=== PATIENT | male | born 1945 | race Caucasian/White ===

== ENCOUNTER 2016-05-22 08:15 | Outpatient (CLI) | payer OTHER | END 2016-05-22 23:59 | DX: D46.9 Myelodysplastic syndrome, unspecified (principal); E11.9 Type 2 diabetes mellitus without complications; I10 Essential (primary) hypertension; E78.5 Hyperlipidemia, unspecified ==

== ENCOUNTER 2016-12-11 09:06 | Outpatient (CLI) | payer OTHER ==
[2016-12-11 12:58] LABS: ALBUMIN/GLOBULIN RATIO 1.8 (1.0-2.2); BILIRUBIN,TOTAL 0.7 mg/dL (0.2-1.0); CALCIUM 9.4 mg/dL (8.5-10.3); CREATININE 1.2 mg/dL (0.6-1.2); POTASSIUM 4.5 mmol/L (3.5-5.0); TOTAL PROTEIN 7.1 g/dL (6.7-8.2); URIC ACID 6.4 mg/dL (2.6-7.2)
[2016-12-11 13:40] LABS: HEMOGLOBIN A1C 0.64 g/dL
== END 2016-12-11 09:07 | disposition home or self-care (01) ==
LOC: LAB.WCP 09:06
PROVIDERS: ATTEND Family Medicine
DX: D46.9 Myelodysplastic syndrome, unspecified (principal); D69.6 Thrombocytopenia, unspecified; I10 Essential (primary) hypertension; E78.9 Disorder of lipoprotein metabolism, unspecified; E11.9 Type 2 diabetes mellitus without complications
CPT/HCPCS: 36415; 80053; 82043; 82607; 83036; 84550

== ENCOUNTER 2018-12-15 08:00 | Outpatient (CLI) | payer OTHER ==
[2018-12-15 13:35] LABS: CHOL/HDL RATIO 4.3 (<5.0); CHOLESTEROL 128 mg/dL; HDL CHOLESTEROL 30 mg/dL; LDL CHOLESTEROL,CALCULATED 79 mg/dL; LDL/HDL RATIO 2.6 (<3.6); VLDL CHOLESTEROL 19 mg/dL
[2018-12-15 13:41] LABS: HB2 TOTAL 13.9 g/dL; HEMOGLOBIN A1C 0.65 g/dL; HEMOGLOBIN A1C % 6.4 % (4.6-6.2)
== END 2018-12-15 23:59 | disposition home or self-care (01) ==
LOC: LAB.WCP 08:00
PROVIDERS: ATTEND Family Medicine
DX: E11.9 Type 2 diabetes mellitus without complications (principal); I10 Essential (primary) hypertension; E78.5 Hyperlipidemia, unspecified
CPT/HCPCS: 36415; 80053; 80061; 82043; 83036; 83721; 84443

== ENCOUNTER 2019-10-27 07:26 | Outpatient (CLI) | payer OTHER ==
[2019-10-27 12:46] LABS: ALBUMIN 4.5 g/dL (3.2-5.5); ALBUMIN/GLOBULIN RATIO 1.8 (1.0-2.2); ALKALINE PHOSPHATASE 80 IU/L (42-121); ALT ALANINE AMINOTRANSFERASE < 10 IU/L (10-60); AST ASPARTATE AMINOTRANSFERASE 18 IU/L (10-42); BILIRUBIN,TOTAL 0.5 mg/dL (0.2-1.0); BUN - BLOOD UREA NITROGEN 24 mg/dL (6-20); CALCIUM 9.1 mg/dL (8.5-10.3); CARBON DIOXIDE - CO2 24 mmol/L (21-32); CHLORIDE 107 mmol/L (101-111); CHOLESTEROL 151 mg/dL; CREATININE 1.3 mg/dL (0.6-1.2); GLUCOSE 146 mg/dL (70-100); HDL CHOLESTEROL 30 mg/dL; LDL CHOLESTEROL,CALCULATED 95 mg/dL; LDL/HDL RATIO 3.2 (<3.6); SODIUM 137 mmol/L (135-145); VLDL CHOLESTEROL 26 mg/dL
[2019-10-27 12:52] LABS: BASOPHILS % (AUTO) 0.4 %; EOSINOPHILS # (AUTO) 0.1 10^3/uL (0.0-0.7); EOSINOPHILS % (AUTO) 2.9 %; HGB - HEMOGLOBIN 13.1 g/dL (14.0-18.0); LYMPHOCYTES # (AUTO) 1.4 10^3/uL (1.5-3.5); MEAN CORPUSCULAR HEMOGLOBIN 32.2 pg (27.0-31.0); MEAN CORPUSCULAR HGB CONC 33.4 g/dL (32.0-36.0); MEAN CORPUSCULAR VOLUME 96.3 fL (80.0-94.0); MEAN PLATELET VOLUME 12.1 fL (7.4-11.4); MONOCYTES # (AUTO) 0.4 10^3/uL (0.0-1.0); NEUTROPHILS # (AUTO) 2.8 10^3/uL (1.5-6.6); NEUTROPHILS % (AUTO) 58.5 %; PLT - PLATELET COUNT 104 10^3/uL (130-450); RED BLOOD COUNT 4.07 10^6/uL (4.70-6.10); RED CELL DISTRIBUTION WIDTH 12.7 % (12.0-15.0); WHITE BLOOD COUNT 4.8 x10^3/uL (4.8-10.8)
[2019-10-27 12:57] LABS: CREATININE,URINE 149.2 mg/dL; MICROALBUM/CREATININE RATIO,UR 4.7 ug/mg (<30.0); MICROALBUMIN,URINE 0.7 mg/dL (0-300.0)
[2019-10-27 13:11] LABS: HB2 TOTAL 14.1 g/dL; HEMOGLOBIN A1C 0.67 g/dL; HEMOGLOBIN A1C % 6.5 % (4.6-6.2)
== END 2019-10-27 23:59 | disposition home or self-care (01) ==
LOC: LAB.WCP 07:26
PROVIDERS: ATTEND Family Medicine
DX: D46.9 Myelodysplastic syndrome, unspecified (principal); D69.6 Thrombocytopenia, unspecified; I10 Essential (primary) hypertension; E11.9 Type 2 diabetes mellitus without complications; E78.5 Hyperlipidemia, unspecified
CPT/HCPCS: 36415; 80053; 80061; 82043; 82570; 83036; 83721; 84443; 85025

== ENCOUNTER 2020-12-08 09:49 | Outpatient (CLI) | payer OTHER ==
[2020-12-08 12:28] LABS: BASOPHILS % (AUTO) 0.5 %; EOSINOPHILS # (AUTO) 0.1 10^3/uL (0.0-0.7); EOSINOPHILS % (AUTO) 2.5 %; HCT - HEMATOCRIT 40.5 % (42.0-52.0); HGB - HEMOGLOBIN 13.6 g/dL (14.0-18.0); LYMPHOCYTES % (AUTO) 21.5 %; MEAN CORPUSCULAR HEMOGLOBIN 32.2 pg (27.0-31.0); MEAN CORPUSCULAR HGB CONC 33.6 g/dL (32.0-36.0); MEAN PLATELET VOLUME 12.1 fL (7.4-11.4); MONOCYTES # (AUTO) 0.3 10^3/uL (0.0-1.0); MONOCYTES % (AUTO) 7.5 %; NEUTROPHILS % (AUTO) 67.5 %; PLT - PLATELET COUNT 112 10^3/uL (130-450); RED BLOOD COUNT 4.22 10^6/uL (4.70-6.10); RED CELL DISTRIBUTION WIDTH 12.3 % (12.0-15.0); WHITE BLOOD COUNT 4.4 x10^3/uL (4.8-10.8)
[2020-12-08 12:38] LABS: ALBUMIN 4.3 g/dL (3.2-5.5); ALBUMIN/GLOBULIN RATIO 1.6 (1.0-2.2); ALKALINE PHOSPHATASE 87 IU/L (42-121); ALT ALANINE AMINOTRANSFERASE 11 IU/L (10-60); AST ASPARTATE AMINOTRANSFERASE 23 IU/L (10-42); BILIRUBIN,TOTAL 0.9 mg/dL (0.2-1.0); BUN - BLOOD UREA NITROGEN 24 mg/dL (6-20); CALCIUM 9.2 mg/dL (8.5-10.3); CARBON DIOXIDE - CO2 27 mmol/L (21-32); CHLORIDE 103 mmol/L (101-111); CHOL/HDL RATIO 4.8 (<5.0); CHOLESTEROL 160 mg/dL; CREATININE 1.3 mg/dL (0.6-1.2); GFR - MDRD 54 (>89); GLUCOSE 189 mg/dL (70-100); HDL CHOLESTEROL 33 mg/dL; LDL CHOLESTEROL,CALCULATED 87 mg/dL; LDL/HDL RATIO 2.6 (<3.6); POTASSIUM 4.8 mmol/L (3.5-5.0); SODIUM 137 mmol/L (135-145); TRIGLYCERIDES 201 mg/dL; VLDL CHOLESTEROL 40 mg/dL
[2020-12-08 12:45] LABS: THYROID STIMULATING HORMONE 0.87 uIU/mL (0.34-5.60)
[2020-12-08 12:50] LABS: ESTIMATED AVERAGE GLUCOSE 140 mg/dL (70-100); HEMOGLOBIN A1c% 6.5 % (4.27-6.07)
== END 2020-12-08 23:59 | disposition home or self-care (01) ==
LOC: LAB.WCP 09:49
PROVIDERS: ATTEND Family Medicine
DX: E11.9 Type 2 diabetes mellitus without complications (principal); R41.3 Other amnesia
CPT/HCPCS: 36415; 80053; 80061; 82607; 83036; 83721; 84443; 85025; 86592

== ENCOUNTER 2021-01-04 13:25 | Outpatient (CLI) | payer OTHER ==
[2021-01-04] MEDS ORDERED: GADOBUTROL 7.5 MMOL/7.5 ML VIAL ONE (13:52)
[2021-01-04] MEDS ORDERED: GADOBUTROL 7.5 MMOL/7.5 ML VIAL IVP ONE (16:20)
--- NOTE | 2021-01-04 17:34 | MRI Report ---
PROCEDURE: Brain W/WO INDICATIONS: MEMORY LOSS CONTRAST: IV CONTRAST: Gadavist ml: 8.6 TECHNIQUE: Noncontrast axial T1 spin echo, axial T2 fast spin echo, sagittal and axial FLAIR, coronal T2 fast sp in echo, axial gradient echo, axial diffusion and ADC through the brain. After the administration of contrast, axial and coronal T1 spin echo with fat saturation through the brain. COMPARISON: None. FINDINGS: Image quality: Excellent. CSF spaces: Basal cisterns are patent. No extra-axial fluid collections. Ventricles are normal in size and shape. Brain: No midline shift. No intracranial bleeds or masses. No abnormal intracranial enhancement. There is cerebral volume loss for age. There is periventricular white matter chronic small vessel is chemic change. The brainstem appears normal. Diffusion-weighted images demonstrate no acute ischemi c insults. No chronic ischemic insults. Normal intravascular flow voids are present. Skull and face: Calvarial marrow is normal in signal. Orbits appear normal. Sinuses: Sinuses and mastoids appear clear. IMPRESSION: No imaging explanation is found for the patient's presenting symptoms. Age-appropriate brain parenchymal volume loss and chronic small vessel ischemic change can be seen. No masses or abnormal enhancement can be seen. No findings of acute or subacute infarction are seen. Reviewed by: Javier Noble MD on 01/04/2021 4:33 PM QUANG Approved by: Javier Noble MD on 01/04/2021 4:33 PM QUANG Station ID: [id number]
== END 2021-01-04 13:26 | disposition home or self-care (01) ==
LOC: DI 13:25
PROVIDERS: ATTEND Family Medicine
DX: R41.3 Other amnesia (principal)
CPT/HCPCS: 70553; A9585

== ENCOUNTER 2021-01-16 09:22 | Outpatient (CLI) | payer OTHER ==
[2021-01-16 13:53] LABS: BASOPHILS % (AUTO) 0.6 %; EOSINOPHILS % (AUTO) 3.8 %; HCT - HEMATOCRIT 40.6 % (42.0-52.0); HGB - HEMOGLOBIN 13.2 g/dL (14.0-18.0); LYMPHOCYTES % (AUTO) 21.5 %; MEAN CORPUSCULAR HEMOGLOBIN 31.4 pg (27.0-31.0); MEAN CORPUSCULAR HGB CONC 32.5 g/dL (32.0-36.0); MEAN CORPUSCULAR VOLUME 96.7 fL (80.0-94.0); MEAN PLATELET VOLUME 12.4 fL (7.4-11.4); MONOCYTES % (AUTO) 6.5 %; NEUTROPHILS % (AUTO) 67.4 %; PLT - PLATELET COUNT 102 10^3/uL (130-450); RED CELL DISTRIBUTION WIDTH 12.6 % (12.0-15.0); WHITE BLOOD COUNT 4.9 x10^3/uL (4.8-10.8)
[2021-01-16 14:00] LABS: SLIDE REVIEW? Indicated
[2021-01-16 17:05] LABS: PLATELET ESTIMATE, MANUAL DECREASED (<130,000) (NORMAL); PLATELET MORPHOLOGY NORMAL APPEARANCE (NORMAL); RBC MORPHOLOGY (MULTIPLE) 1+ ANISOCYTOSIS (NORMAL); WBC MORPHOLOGY (MULTIPLE) NORMAL APPEARANCE (NORMAL)
[2021-01-16 17:06] LABS: DIFFERENTIAL COMMENT MANUAL=AUTO DIFF
== END 2021-01-16 23:59 | disposition home or self-care (01) ==
LOC: LAB.WCP 09:22
PROVIDERS: ATTEND Family Medicine
DX: D61.818 Other pancytopenia (principal)
CPT/HCPCS: 36415; 85025

== ENCOUNTER 2021-02-08 08:57 | Outpatient (CLI) | payer OTHER | END 2021-02-08 08:58 | disposition home or self-care (01) | LOC: DI 08:57 | PROVIDERS: ATTEND Family Medicine | DX: R06.09 Other forms of dyspnea (principal); I11.9 Hypertensive heart disease without heart failure | CPT/HCPCS: 93306 ==

== ENCOUNTER 2021-06-14 15:22 | Outpatient (CLI) | payer OTHER ==
[2021-06-14 16:11] VITALS: BP 128/73
--- NOTE | 2021-06-14 16:11 | SLEEP CARE CONSULTATION ---
Information from patient questionnaire entered by Rosendo Burkett MA. I have reviewed and concur with the information entered by Rosendo Burkett MA. This document represents the service I personally performed and the decisions made by , Lila Da Silva ARNP. History of Present Illness Service Date and Time: 06/14/2021 1522 Reason for Visit: New patient (ONST 04/2020, NO PRIORS,) Accompanied by: Spouse Chief Complaint: reports: Unrefreshed sleep, Fatigue Date of Onset: 1-2 YEARS Usual bedtime: 9-10 PM Time it takes to fall asleep: very quickly, seconds Snores at night: No Observed to quit breathing while asleep: No Sleeps alone due to snoring: No Number of times waking at night: 2 Reasons for waking at night: reports: Other (CHANGE POSITIONS). denies: Choking, Snoring, Gasping for air Toss, Turn, or Twitch while sleeping: Yes Recalls having dreams: No (remembers "snippets" of dream) Usually gets out of bed at: 0700 Feels refreshed in the morning: No (sometimes) Morning headache: No Sleepy or fatigued during the day: No ( says yes) Ever fallen asleep while driving: No (not driving current) Takes day naps: No Dreams during day naps: No Prior sleep studies: No Additional HPI information: I had the pleasure of seeing BARNEY TRAVIS today regarding the possibility of him having a sleep disorder. His current complaints are fatigue and unrefreshed sleep. He was referred by neurology due to his possible Lewy-body Dementia. He is thrashing/acting out dreams about once every 3-4 weeks. - Parasomnia Symptoms Ever been unable to move upon waking from sleep: No Walks in sleep: No Talks in sleep: Yes Ever acted out dreams in sleep: Yes Ever felt weak in the knees when startled or emotional: No Bothered by creepy, crawly, restless sensations in legs: No Problems with memory or concentration: No (memory according to ) Subjective Initial [place] Sleepiness Scale score: 5 (06/13) Past Medical History Past Medical History: reports: Hypertension, Diabetes, Other (Lewy Body Demetia; high cholesterol) Social History The patient's occupation is a RE. Patient is and lives in [place]. Have you smoked in the past 12 months: No Cigarettes per day (20/pack): 20 Years of smokin Quit date: 1982 Smoking Pack Years: 18.0 Alcohol use: Yes Alcohol amount and frequency: 2-3 X week Caffeine use: Yes Caffeine amount and frequency: 1 coffee weekly; 2-3 sodas X daily Family History Family history of sleep disordered breathing: No Allergies and Home Medications Known drug allergies: Yes (LISINOPRIL) Drug allergies reviewed: Yes Home medication list reviewed: Yes Allergy and home medication list: Allergies hydrochlorothiazide Allergy (Verified 12/28/19 08:42) Anaphylaxis lisinopril Allergy (Verified 12/28/19 08:42) Anaphylaxis Medications: Carvedilol Metformin Glipizide Losartan Simvastatin Mementine B12 Poly-Iron Fish oil Vitamin C Review of Systems Weight loss over past 5 years: 5-10 Cardiovascular: reports: high blood pressure Gastrointestinal: reports: diarrhea (now and then) Neurological: reports: gait or balance problems Immunologic: reports: sneezing Physical Exam Vital signs obtained and entered by: Zoie BURKETT [facility] Blood Pressure: 128/73 (RIGHT, PUSE5 57, RESP 18 ) Heart Rate: 57 O2 Saturation: 97 (PAPER) Height: 5 ft 11 in Weight: 189 lb Body Mass Index: 26.3 BMI Classification: Overweight Neck circumference: 15.5 (INCHES) Mouth and throat: narrow oropharynx Soft palate: long Hard palate: normal Uvula: normal Uvula visualization: 50% Mallampati Class II Tongue: enlarged in size with teeth agee on lateral edges Tonsils: small Neck: normal w/o lymphadenopathy or thyromegaly Heart: regular rate and rhythm Lungs: clear bilaterally Impression and Plan 1. Suspected Obstructive Sleep Apnea-Hypopnea Syndrome, as suggested by a history of unrefreshed sleep, cognitive impairment, and daytime fatigue. Patient has a history of diabetes and hypertension. 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 I recommend proceeding to polysomnography to confirm the diagnosis and to assess severity. If the patient has significant sleep disordered breathing, a manual CPAP titration study will also be performed to find the optimal treatment pressure. I informed the patient of what the sleep studies involve and after some discussion, obtained agreement to proceed. The pathophysiology of obstructive sleep apnea-hypopnea syndrome was discussed with the patient and health risks of cardiovascular and cerebrovascular disease if not treated. Risks of drowsy driving discussed in detail and patient advised to avoid long distance driving and to casing puller at the first sign of drowsiness. Patient agreed to plan. * Schedule polysomnography +- manual CPAP titration study and return in 1-2 weeks after the study to discuss results. * Avoid alcohol, sedative and muscle relaxant around bedtime. * Maintain a healthy weight. * Review instructions provided by trained office staff on how to prepare for the sleep study. * Return for follow-up after sleep study completed. Counseling Topics: Weight loss health impact Visit Type: In Office Other Participants: Spouse/Significant Other Time Spent with Patient (minutes): 35 Provider Statement: I spent 100% of the Face to Face Visit with the patient with greater than 50% spent counseling the patient and coordination of care.
== END 2021-06-14 15:23 | disposition home or self-care (01) ==
LOC: SC 15:22
PROVIDERS: ATTEND Nurse Practitioner Family
DX: R53.83 Other fatigue (principal); G47.8 Other sleep disorders; E11.9 Type 2 diabetes mellitus without complications; E66.3 Overweight; Z68.26 Body mass index [BMI] 26.0-26.9, adult; Z87.891 Personal history of nicotine dependence
CPT/HCPCS: 99203; 99212

== ENCOUNTER 2021-07-16 20:34 | Outpatient (CLI) | payer OTHER | END 2021-07-16 20:35 | disposition home or self-care (01) | LOC: SC 20:34 | PROVIDERS: ATTEND Nurse Practitioner Family | DX: G47.61 Periodic limb movement disorder (principal) | CPT/HCPCS: 95810 ==

== ENCOUNTER 2021-09-14 09:26 | Outpatient (CLI) | payer OTHER ==
[2021-09-14 11:37] LABS: BASOPHILS % (AUTO) 0.6 %; EOSINOPHILS # (AUTO) 0.1 10^3/uL (0.0-0.7); EOSINOPHILS % (AUTO) 2.5 %; HCT - HEMATOCRIT 40.6 % (42.0-52.0); HGB - HEMOGLOBIN 13.6 g/dL (14.0-18.0); LYMPHOCYTES % (AUTO) 20.3 %; MEAN CORPUSCULAR HEMOGLOBIN 31.5 pg (27.0-31.0); MEAN CORPUSCULAR HGB CONC 33.5 g/dL (32.0-36.0); MEAN PLATELET VOLUME 12.3 fL (7.4-11.4); MONOCYTES # (AUTO) 0.4 10^3/uL (0.0-1.0); MONOCYTES % (AUTO) 7.4 %; NEUTROPHILS # (AUTO) 3.4 10^3/uL (1.5-6.6); PLT - PLATELET COUNT 107 10^3/uL (130-450); RED BLOOD COUNT 4.32 10^6/uL (4.70-6.10); RED CELL DISTRIBUTION WIDTH 12.4 % (12.0-15.0); WHITE BLOOD COUNT 4.9 x10^3/uL (4.8-10.8)
[2021-09-14 11:54] LABS: ESTIMATED AVERAGE GLUCOSE 131 mg/dL (70-100); HEMOGLOBIN A1c% 6.2 % (4.27-6.07)
[2021-09-14 12:03] LABS: ALBUMIN 4.3 g/dL (3.2-5.5); ALBUMIN/GLOBULIN RATIO 1.7 (1.0-2.2); ALKALINE PHOSPHATASE 69 IU/L (42-121); ALT ALANINE AMINOTRANSFERASE 13 IU/L (10-60); AST ASPARTATE AMINOTRANSFERASE 23 IU/L (10-42); BILIRUBIN,TOTAL 1.1 mg/dL (0.2-1.0); BUN - BLOOD UREA NITROGEN 23 mg/dL (6-20); CALCIUM 9.1 mg/dL (8.5-10.3); CARBON DIOXIDE - CO2 28 mmol/L (21-32); CHLORIDE 102 mmol/L (101-111); CHOL/HDL RATIO 5.1 (<5.0); CHOLESTEROL 147 mg/dL; CREATININE 1.3 mg/dL (0.6-1.2); GFR - MDRD 53 (>89); GLUCOSE 190 mg/dL (70-100); HDL CHOLESTEROL 29 mg/dL; LDL CHOLESTEROL,CALCULATED 86 mg/dL; POTASSIUM 4.8 mmol/L (3.5-5.0); SODIUM 138 mmol/L (135-145); TOTAL PROTEIN 6.9 g/dL (6.7-8.2); TRIGLYCERIDES 160 mg/dL; VLDL CHOLESTEROL 32 mg/dL
[2021-09-14 12:05] LABS: THYROID STIMULATING HORMONE 1.01 uIU/mL (0.34-5.60)
== END 2021-09-14 09:27 | disposition home or self-care (01) ==
LOC: LAB.N 09:26
PROVIDERS: ATTEND Nurse Practitioner Family
DX: I10 Essential (primary) hypertension (principal); E78.5 Hyperlipidemia, unspecified; E11.9 Type 2 diabetes mellitus without complications
CPT/HCPCS: 36415; 80053; 80061; 83036; 83721; 84443; 85025

== ENCOUNTER 2022-09-27 09:30 | Outpatient (CLI) | payer OTHER ==
[2022-09-27 12:12] LABS: BASOPHILS % (AUTO) 0.6 %; EOSINOPHILS # (AUTO) 0.1 10^3/uL (0.0-0.7); HCT - HEMATOCRIT 36.5 % (42.0-52.0); HGB - HEMOGLOBIN 12.4 g/dL (14.0-18.0); LYMPHOCYTES # (AUTO) 1.1 10^3/uL (1.5-3.5); LYMPHOCYTES % (AUTO) 20.7 %; MEAN CORPUSCULAR HEMOGLOBIN 32.2 pg (27.0-31.0); MEAN CORPUSCULAR VOLUME 94.8 fL (80.0-94.0); MEAN PLATELET VOLUME 12.1 fL (7.4-11.4); MONOCYTES # (AUTO) 0.4 10^3/uL (0.0-1.0); MONOCYTES % (AUTO) 8.2 %; NEUTROPHILS # (AUTO) 3.5 10^3/uL (1.5-6.6); NEUTROPHILS % (AUTO) 68.1 %; PLT - PLATELET COUNT 105 10^3/uL (130-450); RED BLOOD COUNT 3.85 10^6/uL (4.70-6.10); RED CELL DISTRIBUTION WIDTH 12.2 % (12.0-15.0); WHITE BLOOD COUNT 5.1 x10^3/uL (4.8-10.8)
[2022-09-27 12:21] LABS: % IRON SATURATION 32 % (20-50); ALBUMIN 4.1 g/dL (3.2-5.5); ALBUMIN/GLOBULIN RATIO 1.5 (1.0-2.2); ALKALINE PHOSPHATASE 82 IU/L (42-121); ALT ALANINE AMINOTRANSFERASE 11 IU/L (10-60); AST ASPARTATE AMINOTRANSFERASE 21 IU/L (10-42); BILIRUBIN,TOTAL 0.7 mg/dL (0.2-1.0); BUN - BLOOD UREA NITROGEN 22 mg/dL (6-20); CARBON DIOXIDE - CO2 27 mmol/L (21-32); CHLORIDE 107 mmol/L (101-111); CHOL/HDL RATIO 4.6 (<5.0); CHOLESTEROL 146 mg/dL; CREATININE 1.4 mg/dL (0.6-1.2); GFR - MDRD 49 (>89); GLUCOSE 184 mg/dL (70-100); HDL CHOLESTEROL 32 mg/dL; IRON 105 ug/dL (45-182); LDL CHOLESTEROL,CALCULATED 89 mg/dL; LDL/HDL RATIO 2.8 (<3.6); POTASSIUM 4.8 mmol/L (3.5-5.0); SODIUM 138 mmol/L (135-145); TOTAL IRON BINDING CAPACITY 328 ug/dL (250-450); TOTAL PROTEIN 6.9 g/dL (6.7-8.2); TRANSFERRIN 234 mg/dL (180-329); TRIGLYCERIDES 124 mg/dL; VLDL CHOLESTEROL 25 mg/dL
[2022-09-27 12:29] LABS: ESTIMATED AVERAGE GLUCOSE 134 mg/dL (70-100); HEMOGLOBIN A1c% 6.3 % (4.27-6.07)
[2022-09-27 12:33] LABS: THYROID STIMULATING HORMONE 0.6 uIU/mL (0.34-5.60)
[2022-09-27 12:40] LABS: FERRITIN 124.5 ng/mL (23.9-336.2)
[2022-09-27 12:44] LABS: FOLATE 6.9 ng/mL (5.90 - >24.8)
== END 2022-09-27 09:31 | disposition home or self-care (01) ==
LOC: LAB.N 09:30
PROVIDERS: ATTEND Nurse Practitioner Family
DX: I15.1 Hypertension secondary to other renal disorders (principal); E11.22 Type 2 diabetes mellitus with diabetic chronic kidney disease; N18.30 Chronic kidney disease, stage 3 unspecified; G31.83 Neurocognitive disorder with Lewy bodies; E78.5 Hyperlipidemia, unspecified
CPT/HCPCS: 36415; 80053; 80061; 82607; 82728; 82746; 83036; 83540; 83721; 84443; 84466; 85025

== ENCOUNTER 2023-03-27 13:22 | Outpatient (CLI) | payer OTHER ==
[2023-03-27 17:55] LABS: BASOPHILS % (AUTO) 0.6 %; EOSINOPHILS # (AUTO) 0.2 10^3/uL (0.0-0.7); EOSINOPHILS % (AUTO) 2.9 %; HCT - HEMATOCRIT 36.2 % (42.0-52.0); HGB - HEMOGLOBIN 12.3 g/dL (14.0-18.0); LYMPHOCYTES # (AUTO) 1.1 10^3/uL (1.5-3.5); LYMPHOCYTES % (AUTO) 21.7 %; MEAN CORPUSCULAR HEMOGLOBIN 32.2 pg (27.0-31.0); MEAN CORPUSCULAR VOLUME 94.8 fL (80.0-94.0); MEAN PLATELET VOLUME 12.3 fL (7.4-11.4); MONOCYTES # (AUTO) 0.4 10^3/uL (0.0-1.0); MONOCYTES % (AUTO) 7.4 %; NEUTROPHILS # (AUTO) 3.5 10^3/uL (1.5-6.6); NEUTROPHILS % (AUTO) 67.2 %; PLT - PLATELET COUNT 108 10^3/uL (130-450); RED BLOOD COUNT 3.82 10^6/uL (4.70-6.10); RED CELL DISTRIBUTION WIDTH 13.3 % (12.0-15.0); WHITE BLOOD COUNT 5.2 x10^3/uL (4.8-10.8)
[2023-03-27 18:12] LABS: ESTIMATED AVERAGE GLUCOSE 146 mg/dL (70-100); HEMOGLOBIN A1c% 6.7 % (4.27-6.07); THYROID STIMULATING HORMONE 1.19 uIU/mL (0.34-5.60)
[2023-03-27 19:17] LABS: ALBUMIN 4.5 g/dL (3.2-5.5); ALKALINE PHOSPHATASE 98 IU/L (42-121); ALT ALANINE AMINOTRANSFERASE 6 IU/L (10-60); AST ASPARTATE AMINOTRANSFERASE 17 IU/L (10-42); BILIRUBIN,TOTAL 0.5 mg/dL (0.2-1.0); BUN - BLOOD UREA NITROGEN 23 mg/dL (6-20); CALCIUM 9.1 mg/dL (8.5-10.3); CARBON DIOXIDE - CO2 25 mmol/L (21-32); CHLORIDE 106 mmol/L (101-111); CHOL/HDL RATIO 8.9 (<5.0); CHOLESTEROL 268 mg/dL; CREATININE 1.7 mg/dL (0.6-1.3); GFR - MDRD 39 (>89); GLUCOSE 150 mg/dL (74-104); HDL CHOLESTEROL 30 mg/dL; LDL CHOLESTEROL,CALCULATED 190 mg/dL; LDL/HDL RATIO 6.3 (<3.6); POTASSIUM 4.9 mmol/L (3.5-4.5); SODIUM 138 mmol/L (135-145); TOTAL PROTEIN 6.8 g/dL (6.4-8.9); TRIGLYCERIDES 238 mg/dL (48-352); VLDL CHOLESTEROL 48 mg/dL
== END 2023-03-27 13:23 | disposition home or self-care (01) ==
LOC: LAB.N 13:22
PROVIDERS: ATTEND Nurse Practitioner Family
DX: I10 Essential (primary) hypertension (principal); E11.9 Type 2 diabetes mellitus without complications; E78.5 Hyperlipidemia, unspecified
CPT/HCPCS: 36415; 80053; 80061; 83036; 83721; 84443; 85025

== ENCOUNTER 2023-03-28 20:27 | Outpatient (CLI) | payer OTHER | END 2023-03-28 20:28 | disposition EMS.NT | LOC: EMS 20:27 | DX: Z03.89 Encounter for observation for other suspected diseases and conditions ruled out (principal) ==

== ENCOUNTER 2023-05-08 08:00 | Outpatient (CLI) | payer OTHER ==
[2023-05-08 16:39] LABS: BILIRUBIN,URINE NEGATIVE (NEGATIVE); GLUCOSE, URINE (UA) 100 mg/dL (NEGATIVE); KETONES,URINE (UA) NEGATIVE (NEGATIVE); LEUKOCYTE ESTERASE, URINE NEGATIVE (NEGATIVE); NITRITE,URINE NEGATIVE (NEGATIVE); OCCULT BLOOD,URINE NEGATIVE (NEGATIVE); PH,URINE 5.5 PH (5.0-7.5); PROTEIN,URINE NEGATIVE (NEGATIVE); UROBILINOGEN,URINE 0.2 (NORMAL) E.U./dL (NORMAL)
[2023-05-08 16:40] LABS: CLARITY,URINE CLEAR (CLEAR)
== END 2023-05-08 23:59 | disposition home or self-care (01) ==
LOC: LAB.N 08:00
PROVIDERS: ATTEND Nurse Practitioner Gerontology
DX: N39.0 Urinary tract infection, site not specified (principal)
CPT/HCPCS: 81001; 81003; 87086

== ENCOUNTER → 2023-05-27 | Outpatient (CLI) | payer OTHER | LOC: PC 08:00 | PROVIDERS: ATTEND Nurse Practitioner Gerontology | DX: Z51.5 Encounter for palliative care (principal); G31.83 Neurocognitive disorder with Lewy bodies; F02.84 Dementia in other diseases classified elsewhere, unspecified severity, with anxiety; F02.811 Dementia in other diseases classified elsewhere, unspecified severity, with agitation; F02.82 Dementia in other diseases classified elsewhere, unspecified severity, with psychotic disturbance; G20.C Parkinsonism, unspecified; G47.52 REM sleep behavior disorder; Z79.899 Other long term (current) drug therapy; Z66 Do not resuscitate | CPT/HCPCS: 99349 ==

== ENCOUNTER 2023-06-17 08:00 | Outpatient (CLI) | payer OTHER | END 2023-06-17 23:59 | disposition home or self-care (01) | LOC: PC 08:00 | PROVIDERS: ATTEND Nurse Practitioner Gerontology | DX: Z51.5 Encounter for palliative care (principal); G31.83 Neurocognitive disorder with Lewy bodies; F02.811 Dementia in other diseases classified elsewhere, unspecified severity, with agitation; F02.82 Dementia in other diseases classified elsewhere, unspecified severity, with psychotic disturbance; F02.84 Dementia in other diseases classified elsewhere, unspecified severity, with anxiety; G47.52 REM sleep behavior disorder; Z79.899 Other long term (current) drug therapy; Z71.89 Other specified counseling; Z87.891 Personal history of nicotine dependence; Z66 Do not resuscitate | CPT/HCPCS: 99349 ==

== ENCOUNTER 2023-07-09 08:00 | Outpatient (CLI) | payer OTHER | END 2023-07-09 23:59 | disposition home or self-care (01) | LOC: PC 08:00 | PROVIDERS: ATTEND Nurse Practitioner Gerontology | DX: Z51.5 Encounter for palliative care (principal); G31.83 Neurocognitive disorder with Lewy bodies; F02.811 Dementia in other diseases classified elsewhere, unspecified severity, with agitation; F02.84 Dementia in other diseases classified elsewhere, unspecified severity, with anxiety; F02.82 Dementia in other diseases classified elsewhere, unspecified severity, with psychotic disturbance; G47.52 REM sleep behavior disorder; Z91.83 Wandering in diseases classified elsewhere; R32 Unspecified urinary incontinence; R15.9 Full incontinence of feces; J30.9 Allergic rhinitis, unspecified; G45.9 Transient cerebral ischemic attack, unspecified; E11.22 Type 2 diabetes mellitus with diabetic chronic kidney disease; I12.9 Hypertensive chronic kidney disease with stage 1 through stage 4 chronic kidney disease, or unspecified chronic kidney disease; N18.30 Chronic kidney disease, stage 3 unspecified; Z79.899 Other long term (current) drug therapy; Z74.1 Need for assistance with personal care | CPT/HCPCS: 99350 ==

== ENCOUNTER 2023-07-23 08:00 | Outpatient (CLI) | payer OTHER | END 2023-07-23 23:59 | disposition home or self-care (01) | LOC: PC 08:00 | PROVIDERS: ATTEND Nurse Practitioner Gerontology | DX: Z51.5 Encounter for palliative care (principal); F03.90 Unspecified dementia, unspecified severity, without behavioral disturbance, psychotic disturbance, mood disturbance, and anxiety | CPT/HCPCS: 99426; 99427 ==

== ENCOUNTER 2023-07-23 08:00 | Outpatient (CLI) | payer OTHER | END 2023-07-23 23:59 | disposition home or self-care (01) | LOC: PC 08:00 | PROVIDERS: ATTEND Nurse Practitioner Gerontology | DX: Z51.5 Encounter for palliative care (principal); G31.83 Neurocognitive disorder with Lewy bodies; G20.C Parkinsonism, unspecified; F02.811 Dementia in other diseases classified elsewhere, unspecified severity, with agitation; F02.82 Dementia in other diseases classified elsewhere, unspecified severity, with psychotic disturbance; F02.84 Dementia in other diseases classified elsewhere, unspecified severity, with anxiety; G47.52 REM sleep behavior disorder; R32 Unspecified urinary incontinence; R29.6 Repeated falls; R53.1 Weakness; I10 Essential (primary) hypertension; Z79.899 Other long term (current) drug therapy; Z74.1 Need for assistance with personal care | CPT/HCPCS: 99349 ==

== ENCOUNTER 2023-08-23 08:00 | Outpatient (CLI) | payer OTHER | END 2023-08-23 23:59 | disposition home or self-care (01) | LOC: PC 08:00 | PROVIDERS: ATTEND Nurse Practitioner Gerontology | DX: Z51.5 Encounter for palliative care (principal); F03.90 Unspecified dementia, unspecified severity, without behavioral disturbance, psychotic disturbance, mood disturbance, and anxiety | CPT/HCPCS: 99426 ==

== ENCOUNTER 2023-10-01 08:00 | Outpatient (CLI) | payer OTHER | END 2023-10-01 23:59 | disposition home or self-care (01) | LOC: PC 08:00 | PROVIDERS: ATTEND Nurse Practitioner Gerontology | DX: Z51.5 Encounter for palliative care (principal); F03.90 Unspecified dementia, unspecified severity, without behavioral disturbance, psychotic disturbance, mood disturbance, and anxiety | CPT/HCPCS: 99426; 99427 ==

== ENCOUNTER → 2023-10-01 | Outpatient (CLI) | payer OTHER | LOC: PC 08:00 | PROVIDERS: ATTEND Nurse Practitioner Gerontology | DX: Z51.5 Encounter for palliative care (principal); G31.83 Neurocognitive disorder with Lewy bodies; F02.82 Dementia in other diseases classified elsewhere, unspecified severity, with psychotic disturbance; G20.C Parkinsonism, unspecified; E11.22 Type 2 diabetes mellitus with diabetic chronic kidney disease; N18.30 Chronic kidney disease, stage 3 unspecified; F41.9 Anxiety disorder, unspecified; F32.A Depression, unspecified; Z66 Do not resuscitate; Z71.89 Other specified counseling; Z75.8 Other problems related to medical facilities and other health care | CPT/HCPCS: 99350 ==

== ENCOUNTER 2023-10-02 16:31 | Outpatient (CLI) | payer OTHER | END 2023-10-02 23:59 | disposition E | LOC: EMS 16:31 | DX: Z66 Do not resuscitate ==